=== PATIENT | female | born 1990 | race Caucasian/White ===

== ENCOUNTER 2017-11-30 17:30 | Outpatient (CLI) | payer OTHER ==
[~2017-11-30] VITALS: Ht 170.2 cm; Wt 71.4 kg
[2017-11-30 17:45] VITALS: BP 122/74; PULSE 63; TEMP 98.2
[2017-11-30] MEDS ORDERED: PRENATAL (17:50)
[2017-11-30] MEDS ORDERED: ZOLOFT 50MG50 MG PO (17:50)
[2017-11-30 18:05] VITALS: BP 122/74; PULSE 63; TEMP 98.2
== END 2017-11-30 18:05 | disposition home or self-care (01) ==
LOC: LDRO 17:30
DX: O62.9 Abnormality of forces of labor, unspecified (principal); Z3A.37 37 weeks gestation of pregnancy

== ENCOUNTER 2017-12-14 01:42 | Inpatient (IN) | payer OTHER ==
[2017-12-14] VITALS (46 sets, daily range): BP systolic 98–145; BP diastolic 50–86; PULSE 60–130; TEMP 97.4–98.5
[~2017-12-14] VITALS: Ht 170.2 cm; Wt 72.3 kg
[~2017-12-14 01:42] MED LIST: PRENATAL; ZOLOFT 50MG50 MG PO
[2017-12-14 04:04] LABS: BASO % 0.3 % (0.0-2.0); EOS # 0.1 (0.0-0.7); EOS % 0.5 % (0-4.0); GRAN % 77.4 % (42.2-75.2); HEMATOCRIT 36.8 % (37.0-47.0); HEMOGLOBIN 12.8 g/dl (12.5-16.0); LYMPH # 1.5 (1.2-3.4); LYMPH % 13.3 % (20.0-51.0); MEAN CELL VOLUME 90 fl (80.0-100.0); MEAN CORPUSCULAR HEMOGLOBIN 31 pg (27.0-31.0); MEAN CORPUSCULAR HGB CONC 35 g/dl (33.0-37.0); MEAN PLATELET VOLUME 11.4 fl (7.4-10.4); MONO # 0.9 (0.1-0.6); MONO % 7.8 % (1.7-9.3); PLATELET COUNT 216 K/mm3 (130-400); RED BLOOD COUNT 4.08 M/mm3 (4.10-5.30); REDCELL DISTRIBUTION WIDTH-CV 13.1 % (11.5-14.5)
[2017-12-15 00:30] VITALS: BP 106/66; PULSE 92
[2017-12-15 08:15] VITALS: BP 112/72; PULSE 87; TEMP 97.9
[2017-12-15] MEDS ORDERED: MOTRIN 600600 MG/TAB PO (10:36)
[2017-12-15] MEDS ORDERED: PERCOCET 325 MG1 TA2 PO (10:36)
[2017-12-15 17:30] VITALS: BP 115/79; PULSE 100; TEMP 97.2
== END 2017-12-15 20:25 | disposition home or self-care (01) | DRG 775 ==
LOC: LDRO 01:42 → OB 03:00 → LDR 03:00 → OB 16:08 → LDRO 01-04 08:31
PROVIDERS: Obstetrics & Gynecology
PROC: 10E0XZZ Delivery of Products of Conception, External Approach (ICD-10-PCS; principal; 2017-12-14)
PROC: 0KQM0ZZ Repair Perineum Muscle, Open Approach (ICD-10-PCS; 2017-12-14)
DX: O69.1XX0 Labor and delivery complicated by cord around neck, with compression, not applicable or unspecified (principal); O70.1 Second degree perineal laceration during delivery; Z3A.39 39 weeks gestation of pregnancy; Z37.0 Single live birth
CPT/HCPCS: J2590; J7120

== ENCOUNTER → 2017-12-16 | Outpatient (CLI) | payer OTHER ==
[~2017-12-16] MED LIST changes: +MOTRIN 600600 MG/TAB PO; +PERCOCET 325 MG1 TA2 PO
== END ==
LOC: LAC 11:27
DX: Z39.1 Encounter for care and examination of lactating mother (principal); Z71.89 Other specified counseling

== ENCOUNTER → 2018-01-20 | Outpatient (CLI) | payer OTHER | LOC: OLC 10:25 | DX: Z39.1 Encounter for care and examination of lactating mother (principal); Z71.89 Other specified counseling ==

== ENCOUNTER 2019-11-08 05:09 | Inpatient (IN) | payer BC ==
[~2019-11-08] VITALS: Ht 170.2 cm; Wt 78.2 kg
[2019-11-08] VITALS (11 sets, daily range): BP systolic 107–125; BP diastolic 53–75; PULSE 68–89; TEMP 98–98.6
--- NOTE | 2019-11-08 05:15 | NUR ---
G2L1 at 40 weeks and 1 day arrives to unit with complaint of contractions every 2-4 minutes starting around 0300 this morning. Pt reports good movement, denies LOF, or vaginal bleeding. Pt reports no complications this or with last delivery. Pt oriented to room, call light within reach, bed in low and locked position. Clean gown on. US and toco explained and applied. Plan of care reviewed with patient and spouse. Vital signs obtained. SVE 4/80/-2, posterior position, membranes intact.
--- NOTE | 2019-11-08 05:48 | NUR ---
Pt wishing to ambulate in room. Category 1 FHR tracing obtained. Monitors removed at this time. Pt updated on plan of care.
--- NOTE | 2019-11-08 06:17 | NUR ---
Bedside report recieved from Gonsalo Evans RN. 0630: SVE per Gonsalo Evans RN- Patient breathing with contractions and coping with pain at this time and has no needs at this time. Plan of care discussed and patient/spouse agree. 0640: IV started in left upper arm, blood obtained and to lab, LR infusing. 0655: Patient calls out and states she felt a gush of fluid. This RN looks and blooded on chucks noted with small amount clear fluid at this time and states she wants epidural. Valentin Mckinnon CRNA notified and with another patient at this time. 0700:Patient states she is feeling alot more pressure. SVE-/+2 Dr. Mcfarland called and notified and states "call color control operator doctor for delivery" 0704: Dr. Valentin called and notified that she was needed for delivery and states "she is on the way" Difficulty tracing FHR due to maternal position. 0705: Patient and feeling the urge to push with each contraction. Angélica at setting up delivery table and assistance called into room at this time. Leticia RN and Ronn RN at bedside for assistance. Patient breathing through contractions and head decending. This RN puts on strerile gloves. 0709: Spontaneous delivery of viable infants head followed by body and bulbed suctioned. NCx1 noted at this time. Infant to patient abdomen and Leticia assumes care of . Patient requesting to delay cord clamping. 0713: This RN clamps and cuts cord at this time. 0715: Dr. Valentin at bedside at this time. Patient legs in stirrups and bed taken apart. 0718: Spontaneous vaginal delivery of placenta and pitocin started at 333mU bolus per protocol. Dr. Valentin begins to inject lidocaine into perineum and repairs laceration. Fundal massage done, firm, bleeding WNL. Patient repsitioned and ice pack to perineum. Plan of care discussed.
[2019-11-08 07:33] LABS: BASO % 0.3 % (0.0-2.0); EOS % 0.3 % (0-4.0); GRAN # 9.2 (1.4-6.5); GRAN % 80.1 % (42.2-75.2); HEMOGLOBIN 12.6 g/dl (12.5-16.0); LYMPH # 1.3 (1.2-3.4); LYMPH % 11.1 % (20.0-51.0); MEAN CELL VOLUME 92 fl (80.0-100.0); MEAN CORPUSCULAR HEMOGLOBIN 32 pg (27.0-31.0); MEAN CORPUSCULAR HGB CONC 34 g/dl (33.0-37.0); MEAN PLATELET VOLUME 11.6 fl (7.4-10.4); MONO # 0.8 (0.1-0.6); MONO % 7.2 % (1.7-9.3); PLATELET COUNT 169 K/mm3 (130-400); REDCELL DISTRIBUTION WIDTH-CV 13.5 % (11.5-14.5)
[2019-11-08 07:37] LABS: HEMATOCRIT 36.7 % (37.0-47.0)
--- NOTE | 2019-11-08 09:35 | NUR ---
Patient ambulates to bathroom with standby assist. Voids, pericare done, new gown/underwear/ice pack on. Patient ambulates to new room and oriented to . Whiteboard gone over and packet given to patient.
[2019-11-09 08:15] VITALS: BP 102/68; PULSE 94; TEMP 98.1
[2019-11-09] MEDS ORDERED: IBU600 MG PO (09:07)
--- NOTE | 2019-11-09 10:59 | NUR ---
Initial visit; Parents thanked Finish Production Manager for offering congratulations and God's blessings for the of their daughter. Finish Production Manager thanked family for choosing [facility].
== END 2019-11-09 11:26 | disposition home or self-care (01) | DRG 807 ==
LOC: LDRO 05:09 → LDR 05:21 → LDRO 06:45 → LDR 06:45 → OB 11:00
PROVIDERS: Obstetrics & Gynecology; ADMIT Student in an Organized Health Care Education/Training Program
PROC: 10E0XZZ Delivery of Products of Conception, External Approach (ICD-10-PCS; principal; 2019-11-08)
PROC: 0KQM0ZZ Repair Perineum Muscle, Open Approach (ICD-10-PCS; 2019-11-08)
DX: O48.0 Post-term pregnancy (principal); Z37.0 Single live birth; O70.1 Second degree perineal laceration during delivery; O62.3 Precipitate labor; Z3A.40 40 weeks gestation of pregnancy; Z23 Encounter for immunization
CPT/HCPCS: J2590; J7120